=== PATIENT | female | born 1990 | race Caucasian/White ===

== ENCOUNTER → 2016-04-13 | Outpatient (CLI) | payer OTHER ==
[~2016-04-13] MED LIST: MIRALAX 119 GR119 GM PO; NORCO 5-325 TA1 EACH PO
[2016-04-13 10:08] LABS: HEMOGLOBIN 15.5 gm/dl (12.3-15.3); RED BLOOD COUNT 4.6 M/UL (4.00-5.10); WHITE BLOOD COUNT 6.9 K/UL (4.5-11.0)
== END ==
LOC: OPSV2 09:00
PROVIDERS: Obstetrics & Gynecology
DX: Z01.812 Encounter for preprocedural laboratory examination (principal); R10.2 Pelvic and perineal pain; Z88.1 Allergy status to other antibiotic agents; Z88.2 Allergy status to sulfonamides
CPT/HCPCS: 36415; 81001; 85025

== ENCOUNTER 2016-04-14 20:30 | Emergency (ER) | payer OTHER ==
[2016-04-21] MEDS ORDERED: MIRALAX 119 GR119 GM PO (11:58)
[2016-04-21] MEDS ORDERED: NORCO 5-325 TA1 EACH PO (11:59)
== END 2016-04-14 22:20 | disposition home or self-care (01) ==
LOC: ER1 20:30
DX: J02.9 Acute pharyngitis, unspecified (principal); F17.210 Nicotine dependence, cigarettes, uncomplicated; Z88.0 Allergy status to penicillin; Z88.1 Allergy status to other antibiotic agents
CPT/HCPCS: 87081; 87880; 99283

== ENCOUNTER → 2016-04-21 | Day surgery (SDC) | payer OTHER ==
[~2016-04-21] VITALS: Ht 160 cm; Wt 51.7 kg
== END | disposition home or self-care (01) ==
LOC: OR 07:10
PROVIDERS: Obstetrics & Gynecology
PROC: 0UJ84ZZ Inspection of Fallopian Tube, Percutaneous Endoscopic Approach (ICD-10-PCS; 2016-04-21)
PROC: 3E0 Administration, Physiological Systems and Anatomical Regions, Introduction (ICD-10-PCS; principal; 2016-04-21 08:00)
DX: K59.00 Constipation, unspecified (principal); R10.2 Pelvic and perineal pain; F41.9 Anxiety disorder, unspecified; F17.210 Nicotine dependence, cigarettes, uncomplicated; Z82.49 Family history of ischemic heart disease and other diseases of the circulatory system; Z83.3 Family history of diabetes mellitus; Z88.0 Allergy status to penicillin; Z88.1 Allergy status to other antibiotic agents; Z98.890 Other specified postprocedural states
CPT/HCPCS: 84703; J1100; J1885; J2250; J2405; J2710; J2795; J3010; J7120; Q9968

== ENCOUNTER 2016-06-21 22:45 | Emergency (ER) | payer OTHER | END 2016-06-22 01:05 | disposition left against medical advice (07) | LOC: ER1 22:45 | DX: Z53.21 Procedure and treatment not carried out due to patient leaving prior to being seen by health care provider (principal) ==

== ENCOUNTER → 2020-02-07 | Day surgery (SDC) | payer OTHER ==
[~2020-02-07] MED LIST changes: +CLINDAMYCIN HC300 MG PO; +IBUPROFEN600 MG PO; +IBUPROFEN800 MG PO; +KEFLEX CAP 500500 MG PO; +MIRALAX17 GM PO; +NORCO 10-325 T1 EACH PO; +NORCO 7.5-3251 EACH PO; +STOOL SOFTENER240 MG PO; +TUMS ULTRA400 MG PO; +VITAMIN C 500500 MG PO; +VITAMIN D350000 UNIT PO; +VOLTAREN100 GM TP; +ZOFRAN ODT 4 MG4 MG PO
[2020-02-07 10:27] LABS: HEMOGLOBIN 14.1 gm/dl (12.3-15.3); RED BLOOD COUNT 4.51 M/UL (4.00-5.10); WHITE BLOOD COUNT 8.7 K/UL (4.5-11.0)
== END | disposition home or self-care (01) ==
LOC: OR 09:47
PROVIDERS: Obstetrics & Gynecology
PROC: 0UT64ZZ Resection of Left Fallopian Tube, Percutaneous Endoscopic Approach (ICD-10-PCS; principal; 2020-02-07 12:45)
DX: N70.11 Chronic salpingitis (principal); N94.6 Dysmenorrhea, unspecified; Z87.59 Personal history of other complications of pregnancy, childbirth and the puerperium; F41.9 Anxiety disorder, unspecified; F17.290 Nicotine dependence, other tobacco product, uncomplicated; Z88.0 Allergy status to penicillin; Z88.1 Allergy status to other antibiotic agents
CPT/HCPCS: 36415; 81001; 84703; 85025; C1769; J1100; J1885; J2001; J2250; J2405; J2704; J2710; J3010; J7120

== ENCOUNTER 2020-02-09 10:05 | Emergency (ER) | payer OTHER ==
[~2020-02-09 10:05] MED LIST changes: -STOOL SOFTENER240 MG PO; -ZOFRAN ODT 4 MG4 MG PO
[2020-02-09 11:56] LABS: HEMOGLOBIN 14.2 gm/dl (12.3-15.3); RED BLOOD COUNT 4.56 M/UL (4.00-5.10); WHITE BLOOD COUNT 6.6 K/UL (4.5-11.0)
[2020-02-09 12:38] LABS: BUN/CREATININE RATIO 11 (0-10)
[2020-02-09] MEDS ORDERED: STOOL SOFTENER240 MG PO (15:53)
[2020-02-09] MEDS ORDERED: ZOFRAN ODT 4 MG4 MG PO (15:53)
[2020-02-09] MEDS ORDERED: NORCO 5-325 TA1 EACH PO (16:00)
[2020-02-10] MEDS ORDERED: NORCO 5-325 TA1 EACH PO (10:57)
== END 2020-02-09 16:05 | disposition home or self-care (01) ==
LOC: ER1 10:05
PROVIDERS: Physician Assistant Medical
DX: G89.18 Other acute postprocedural pain (principal); K59.00 Constipation, unspecified; N83.201 Unspecified ovarian cyst, right side; R33.9 Retention of urine, unspecified; Z88.0 Allergy status to penicillin; Z88.1 Allergy status to other antibiotic agents; Z98.890 Other specified postprocedural states
CPT/HCPCS: 80053; 81001; 83605; 84703; 85025; 87086; 96374; 96375; 99284; J2270; J2405; J7120; Q9967

== ENCOUNTER 2020-02-10 10:40 | Emergency (ER) | payer OTHER ==
[~2020-02-10 10:40] MED LIST changes: +STOOL SOFTENER240 MG PO; +ZOFRAN ODT 4 MG4 MG PO
[2020-02-10] MEDS ORDERED: NORCO 5-325 TA1 EACH PO (10:57)
== END 2020-02-10 11:15 | disposition home or self-care (01) ==
LOC: ER1 10:40
DX: R10.84 Generalized abdominal pain (principal); Z76.0 Encounter for issue of repeat prescription
CPT/HCPCS: 99283

== ENCOUNTER → 2021-06-09 | Outpatient (CLI) | payer OTHER ==
[2021-06-10 08:17] LABS: FSH 5.2 mIU/mL (.); LUTEINIZING HORMONE(LH) 5.6 mIU/mL (.); PROGESTERONE 0.5 ng/mL (.)
== END ==
LOC: US 08:55
PROVIDERS: Obstetrics & Gynecology Reproductive Endocrinology
DX: Z31.83 Encounter for assisted reproductive fertility procedure cycle (principal)
CPT/HCPCS: 36415; 82670; 83001; 83002; 84144; 84443; 84702

== ENCOUNTER → 2021-06-13 | Outpatient (CLI) | payer OTHER ==
[2021-06-14 07:11] LABS: LUTEINIZING HORMONE(LH) 11.4 mIU/mL (.); PROGESTERONE 0.5 ng/mL (.)
== END ==
LOC: LAB 09:04
PROVIDERS: Obstetrics & Gynecology Reproductive Endocrinology
DX: Z31.83 Encounter for assisted reproductive fertility procedure cycle (principal)
CPT/HCPCS: 36415; 82670; 83002; 84144

== ENCOUNTER → 2021-06-16 | Outpatient (CLI) | payer OTHER ==
[2021-06-17 08:20] LABS: LUTEINIZING HORMONE(LH) 5.9 mIU/mL (.)
== END ==
LOC: LAB 09:03
PROVIDERS: Obstetrics & Gynecology Reproductive Endocrinology
DX: Z31.83 Encounter for assisted reproductive fertility procedure cycle (principal)
CPT/HCPCS: 36415; 82670; 83002; 84144

== ENCOUNTER → 2021-06-28 | Outpatient (CLI) | payer OTHER ==
[2021-06-29 06:48] LABS: PROGESTERONE 35.3 ng/mL (.)
== END ==
LOC: LAB 08:43
PROVIDERS: Obstetrics & Gynecology Reproductive Endocrinology
DX: Z31.41 Encounter for fertility testing (principal)
CPT/HCPCS: 36415; 82670; 84144

== ENCOUNTER → 2021-07-03 | Outpatient (CLI) | payer OTHER | LOC: LAB 08:40 | DX: Z32.00 Encounter for pregnancy test, result unknown (principal) | CPT/HCPCS: 36415; 84144; 84702 ==

== ENCOUNTER → 2021-07-28 | Outpatient (CLI) | payer OTHER | LOC: RAD 07:00 | DX: N97.1 Female infertility of tubal origin (principal) | CPT/HCPCS: 74740; C2628; Q9967 ==

== ENCOUNTER → 2021-08-12 | Day surgery (SDC) | payer OTHER ==
[~2021-08-12] MED LIST changes: +HYDROCODONE-AC1 EACH PO
[2021-08-12 07:45] LABS: HEMOGLOBIN 14.1 gm/dl (12.3-15.3); RED BLOOD COUNT 4.73 M/UL (4.00-5.10); WHITE BLOOD COUNT 8.1 K/UL (4.5-11.0)
== END | disposition home or self-care (01) ==
LOC: OR 07:10
PROVIDERS: Obstetrics & Gynecology
DX: N70.11 Chronic salpingitis (principal); N97.9 Female infertility, unspecified; F17.210 Nicotine dependence, cigarettes, uncomplicated; F41.9 Anxiety disorder, unspecified; Z88.0 Allergy status to penicillin; Z88.1 Allergy status to other antibiotic agents
CPT/HCPCS: 36415; 81001; 84702; 85025; C1769; J1100; J1170; J1580; J2001; J2250; J2405; J2704; J2710; J3010

== ENCOUNTER → 2021-10-14 | Outpatient (CLI) | payer OTHER ==
[2021-10-15 09:13] LABS: ESTRADIOL 45.4 pg/mL (.); FSH 5.2 mIU/mL (.); LUTEINIZING HORMONE(LH) 4.5 mIU/mL (.); PROGESTERONE 0.9 ng/mL (.)
== END ==
LOC: LAB 07:19
PROVIDERS: Obstetrics & Gynecology Reproductive Endocrinology
DX: Z31.83 Encounter for assisted reproductive fertility procedure cycle (principal)
CPT/HCPCS: 36415; 82670; 83001; 83002; 84144; 84443; 84702

== ENCOUNTER → 2021-10-21 | Outpatient (CLI) | payer OTHER ==
[2021-10-22 08:14] LABS: LUTEINIZING HORMONE(LH) 12.3 mIU/mL (.); PROGESTERONE 0.3 ng/mL (.)
== END ==
LOC: LAB 07:20
PROVIDERS: Obstetrics & Gynecology Reproductive Endocrinology
DX: Z31.83 Encounter for assisted reproductive fertility procedure cycle (principal)
CPT/HCPCS: 36415; 82670; 83002; 84144

== ENCOUNTER → 2021-11-01 | Outpatient (CLI) | payer OTHER | LOC: LAB 08:00 | PROVIDERS: Obstetrics & Gynecology Reproductive Endocrinology | DX: Z31.49 Encounter for other procreative investigation and testing (principal) | CPT/HCPCS: 82670; 84144 ==

== ENCOUNTER → 2021-11-06 | Outpatient (CLI) | payer OTHER | LOC: LAB 07:19 | DX: Z32.00 Encounter for pregnancy test, result unknown (principal) | CPT/HCPCS: 36415; 84144; 84702 ==